=== PATIENT | male | born 1955 | race Caucasian/White ===

== ENCOUNTER 2018-07-31 05:57 | Observation (INO) ==
[2018-07-31] MEDS ORDERED: 0.9 % Sodium Chloride 1,000 ML IVC ONE (06:37)
[2018-07-31 06:53] LABS: Basophils % 0.2 %; Eosinophils # 0.1 K/mcL (0.0-0.6); Eosinophils % 0.6 %; Hematocrit 46.7 % (37.5-50.1); Hemoglobin 15.9 g/dL (12.9-16.9); Immature Granulocytes % 0.4 % (0-4); Lymphocytes # 0.6 K/mcL (0.6-4.6); Lymphocytes % 6.2 %; Mean Corpuscular Hemoglobin 29.2 pg (28.0-33.3); Mean Corpuscular Volume 85.7 fL (83.0-100.0); Mean Platelet Volume 9.9 fL (9.4-12.4); Monocytes # 0.7 K/mcL (0.0-1.3); Monocytes % 6.9 %; Neutrophils # 8.6 K/mcL (1.6-8.9); Platelet Count 223 K/mcL (140-400); Red Blood Count 5.45 M/mcL (4.19-5.50); Segmented Neutrophils % 85.7 %
[2018-07-31 07:19] LABS: Alanine Aminotransferase 277 Units/L (7-52); Albumin 4.3 g/dL (3.5-5.7); Albumin/Globulin Ratio 1.6 (1.1-2.2); Alkaline Phosphatase 293 Units/L (34-104); Aspartate Amino Transferase 327 Units/L (13-39); BUN/Creatinine Ratio 17 (6-26); Bilirubin,Total 1.6 mg/dL (0.3-1.0); Blood Urea Nitrogen 26 mg/dL (8-23); Calcium 9.9 mg/dL (8.6-10.3); Carbon Dioxide 22 mEq/L (23-29); Chloride 103 mEq/L (98-107); Creatine Kinase 25 Units/L (30-223); Globulin 2.7 g/dL (2.4-3.5); Glucose 435 mg/dL (70-105); Lipase 1285 Units/L (11-82); Osmolality,Calculated 301 (280-300); Potassium 4.4 mEq/L (3.5-5.1); Sodium 134 mEq/L (136-145); Troponin I < 0.03 ng/mL (< 0.04); eGFR For Non-African Americans 45 (> 60)
--- NOTE | 2018-07-31 08:35 | Emergency Department Note ---
Disposition Clinical Impression: Generalized weakness, Elevated LFTs Pancreatitis Qualifiers: Chronicity: acute Pancreatitis type: unspecified pancreatitis type Acute pancreatitis complication: unspecified Qualified Code(s): K85.90 - Acute pancreatitis without necrosis or infection, unspecified Disposition: Admitted As Inpatient Condition: Good [facility]: [facility]Primary Care Provider[facility] - Time of Disposition: 09:28 Weakness HPI - General Chief complaint: ED Weakness Stated complaint: weakness both legs Time Seen by Provider: 07/31/18 06:06 Source: patient Mode of arrival: private vehicle Limitations: no limitations Nursing Notes Reviewed: Yes Vital Signs Reviewed: Yes - History of Present Illness HPI Narrative: Raffy is a pleasant 62-year-old male with a past medical history of CVA, "mini stroke" and diabetes. He presents the emergency room with a chief complaint of bilateral weakness in his medial lower extremities starting around 4:30 this morning. Patient reports that he woke up to go to the bathroom while he was going to the bathroom he "crumpled to the ground". Patient denies falls or trauma or hits to the head during this episode. He states that he felt weak and with the help with his was able to walk to the bathroom. He states he has a previous similar episode where he was diagnosed with pancreatitis. Patient denies difficulty walking, abdominal pain, chest pain, shortness of breath, altered mental status. at bedside notes that the patient is at his normal baseline mental status. 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 Denies: nausea/vomiting, myalgias, rash, shortness of breath - Related Data Home Medications Medication Instructions Recorded Confirmed Gabapentin [Neurontin] 300 mg PO BID 03/15/16 03/15/16 Losartan Potassium [Cozaar] 100 mg PO DAILY 03/15/16 03/15/16 Omeprazole [PriLOSEC] 20 mg PO BIDAC 03/15/16 03/15/16 Zolpidem [Ambien] 10 mg PO HS 03/15/16 03/15/16 glipiZIDE [Glipizide] 20 mg PO BID 03/15/16 03/15/16 Previous Rx's Medication Instructions Recorded 0.9 % Sodium Chloride 50 ml IVC .Q20H #0 ivbag 03/15/16 Aspirin 81 mg PO DAILY tab.chew 03/15/16 Atorvastatin [Lipitor] 80 mg PO HS tablet 03/15/16 Metoprolol [Lopressor] 25 mg PO BID tablet 03/15/16 Morphine [Morphine Sulfate] 2 mg IV Q2H PRN #0 syringe 03/15/16 Ondansetron [Zofran] 4 mg IV Q6HR PRN #0 vial 03/15/16 SitaGLIPtin [Januvia] 100 mg PO DAILY tablet 03/15/16 Allergies Allergy/AdvReac Type Severity Reaction Status Date / Time atenolol Allergy See Verified 07/31/18 07:11 Comments hydrochlorothiazide Allergy Dizziness Verified 07/31/18 07:11 hydroxyzine Allergy Dizziness Verified 07/31/18 07:11 lisinopril Allergy Dizziness Verified 07/31/18 07:11 Terazosin Allergy Dizziness Verified 07/31/18 07:11 All systems ED: reviewed and negative except as stated. Review of Systems: As Per HPI Past Medical History - Past Medical History Medical history: Reports: CVA, diabetes, hyperlipidemia, hypertension, renal disease Surgical history: Reports: orthopedic, other Psychiatric history: Reports: no psych history - Social History Smoking Status: Never smoker Smokeless Tobacco Status: No Alcohol use: Reports: none Drug use: Reports: none Physical Exam No breaks the skin on lower legs. 2+ dorsalis pedis and posterior tibial. Distal extremities are pink warm and dry motor and sensation intact lower extremities. - General Limitations: no limitations General appearance: alert - Head Head exam: atraumatic - Eye Eye exam: Present: normal appearance - ENT ENT exam: normal exam - Neck Neck exam: Present: normal inspection - Chest Chest inspection: Present: normal inspection - Respiratory Respiratory exam: Present: normal lung sounds bilaterally - Cardiovascular Cardiovascular exam: Present: regular rate, normal rhythm - Abdominal Exam Abdominal exam: Present: soft, Non-Tender - Expanded Upper Extremity Exam Shoulder exam: Present: normal inspection Arm exam: Present: normal inspection Elbow exam: Present: normal inspection Forearm/Wrist exam: Present: normal inspection Hand exam: Present: normal inspection - Expanded Lower Extremity Exam Hip/Pelvis exam: Present: normal inspection, full ROM Upper leg exam: Present: normal inspection, full ROM Knee exam: Present: normal inspection, full ROM Lower leg exam: Present: normal inspection, full ROM Ankle exam: Present: normal inspection, full ROM Foot/toe exam: Present: normal inspection, full ROM Course Course Narrative: Patient was given a liter of fluids in the emergency room and a repeat BMP was drawn. She was admitted to the hospitalist/any for by Dr. Ayon. Admitting on July 31 9:27 AM Vital Signs Temperature 97.6 F 07/31/18 06:01 Pulse Rate 91 07/31/18 06:01 Respiratory Rate 18 07/31/18 06:01 Blood Pressure 131/75 07/31/18 06:01 O2 Sat by Pulse Oximetry 97 07/31/18 06:01 Temperature 97.6 F 07/31/18 06:01 Pulse Rate 91 07/31/18 06:01 Respiratory Rate 18 07/31/18 06:01 Blood Pressure 131/75 07/31/18 06:01 O2 Sat by Pulse Oximetry 97 07/31/18 06:01 Oxygen Delivery Oxygen Delivery Room Air Weakness - Lab Data Result diagrams: 07/31/18 06:10 07/31/18 06:10 Lab Results 07/31/18 07/31/18 Range/Units 06:10 06:10 WBC 10.0 (4.3-11.1) K/mcL RBC 5.45 (4.19-5.50) M/mcL Hgb 15.9 (12.9-16.9) g/dL Hct 46.7 (37.5-50.1) % MCV 85.7 (83.0-100.0) fL MCH 29.2 (28.0-33.3) pg MCHC 34.0 (31.6-35.5) g/dL RDW 13.0 (11.5-14.5) % Plt Count 223 (140-400) K/mcL MPV 9.9 (9.4-12.4) fL Immature Gran % 0.4 (0-4) % Seg Neutrophils % 85.7 % Lymphocytes % 6.2 % Monocytes % 6.9 % Eosinophils % 0.6 % Basophils % 0.2 % Neutrophils # 8.6 (1.6-8.9) K/mcL Lymphocytes # 0.6 (0.6-4.6) K/mcL Monocytes # 0.7 (0.0-1.3) K/mcL Eosinophils # 0.1 (0.0-0.6) K/mcL Basophils # 0.0 (0.0-0.2) K/mcL Sodium 134 L (136-145) mEq/L Potassium 4.4 (3.5-5.1) mEq/L Chloride 103 (98-107) mEq/L Carbon Dioxide 22 L (23-29) mEq/L BUN 26 H (8-23) mg/dL Creatinine 1.55 H (0.70-1.30) mg/dL Est GFR ( Amer) 55 L (> 60) Est GFR (Non-Af Amer) 45 L (> 60) BUN/Creatinine Ratio 17 (6-26) Glucose 435 H (70-105) mg/dL Calculated Osmolality 301 H (280-300) Calcium 9.9 (8.6-10.3) mg/dL Total Bilirubin 1.6 H (0.3-1.0) mg/dL AST 327 H (13-39) Units/L ALT 277 H (7-52) Units/L Alkaline Phosphatase 293 H (34-104) Units/L Creatine Kinase 25 L (30-223) Units/L Troponin I < 0.03 (< 0.04) ng/mL Serum Total Protein 7.0 (6.4-8.9) g/dL Albumin 4.3 (3.5-5.7) g/dL Globulin 2.7 (2.4-3.5) g/dL Albumin/Globulin Ratio 1.6 (1.1-2.2) Lipase 1285 H (11-82) Units/L - EKG Data EKG results narrative: old ekg: Dated February 2016 shows sinus rhythm acute MO July 31 603 sinus tachycardia supraventricular bigeminy shows old anteroseptal infarct abnormal T waves July 31 sinus rhythm atrial premature complexes nonspecific intraventricular conduction delay continues to show old anteroseptal infarct nonspecific T waves. EKG's interpreted by Dr. Rouse
[2018-07-31 09:22] LABS: Calcium 9.1 mg/dL (8.6-10.3); Potassium 4.3 mEq/L (3.5-5.1)
[2018-07-31] MEDS ORDERED: Acetaminophen 325 MG TABLET PO PRN (11:00)
[2018-07-31] MEDS ORDERED: OXYCODONE Oral CONC 10 MG/0.5 ML ORAL.SYG SL PRN ×2 (11:00)
[2018-07-31] MEDS ORDERED: *HR* Promethazine 25 MG/ML VIAL IVP PRN (11:00)
[2018-07-31] MEDS ORDERED: Naloxone 0.4 MG/ML INJ IVP PRN (11:00)
--- NOTE | 2018-07-31 11:21 | Internal Med History&Physical ---
Date of Encounter: 07/31/18 Time of Encounter: 11:00 Internal Medicine - H&P: HPI Chief complaint: Bilateral lower extremity weakness Admitted From: Emergency Dept Plans for Post Hospital Care: Home History of present illness: Mr. Betts is a 62 year old male patient with a history of hypertension, hyperlipidemia who presented to the ER with complaints of bilateral lower extremity weakness this morning. He had gotten up to go to the bathroom and he felt very weak in his legs. He sat down but did not fall. He did not have focal weakness but was more generalized weakness. Since then he has been feeling better. He has walked in the hospital without any difficulties. He denies any weakness anywhere else. Denies any abdominal pain, nausea or vomiting. In the ER, his had reported that he had similar presentation when he was last diagnosed with pancreatitis. As such workup was done for pancreatitis and patient was found to have elevated lipase level. ER has therefore requested the patient be hospitalized. He apparently had an episode of pancreatitis about 6 months back at a different hospital. No clear cause was identified then. Past Med Surg Social Fam HX - Past Medical History Attestation: Yes The following information was validated with the patient. Source: patient Medical history: CVA, diabetes, hyperlipidemia, hypertension, renal disease Psychiatric history: no psych history - Past Surgical History Surgical History: appendectomy - Social History Smoking Status: Never smoker Smokeless Tobacco Status: No Alcohol use: none Drug use: none - Family History Father Adopted: No Living Status: Hx Family Cardiac Disorders: Yes Hx Family Respiratory Disorders: No Hx Family Cancer: No Hx Family GI Disorders: No Hx Family Endocrine Disorder: No Hx Family Neuromuscular Disorders: No Hx Family Neurologic Disorders: No Hx Family HEENT Disorders: No Hx Family Autoimmune Disorders: No Internal Medicine - H&P: Meds 0.9 % Sodium Chloride 50 ml IVC .Q20H #0 ivbag 03/15/16 [Rx] Aspirin 81 mg PO DAILY tab.chew 03/15/16 [Rx] Atorvastatin [Lipitor] 80 mg PO HS tablet 03/15/16 [Rx] Gabapentin [Neurontin] 300 mg PO BID 03/15/16 [History] Losartan Potassium [Cozaar] 100 mg PO DAILY 03/15/16 [History] Metoprolol [Lopressor] 25 mg PO BID tablet 03/15/16 [Rx] Morphine [Morphine Sulfate] 2 mg IV Q2H PRN #0 syringe 03/15/16 [Rx] Omeprazole [PriLOSEC] 20 mg PO BIDAC 03/15/16 [History] Ondansetron [Zofran] 4 mg IV Q6HR PRN #0 vial 03/15/16 [Rx] SitaGLIPtin [Januvia] 100 mg PO DAILY tablet 03/15/16 [Rx] Zolpidem [Ambien] 10 mg PO HS 03/15/16 [History] glipiZIDE [Glipizide] 20 mg PO BID 03/15/16 [History] 3 Allergy/AdvReac Type Severity Reaction Status Date / Time atenolol Allergy See Verified 07/31/18 07:11 Comments hydrochlorothiazide Allergy Dizziness Verified 07/31/18 07:11 hydroxyzine Allergy Dizziness Verified 07/31/18 07:11 lisinopril Allergy Dizziness Verified 07/31/18 07:11 Terazosin Allergy Dizziness Verified 07/31/18 07:11 All Systems PM: A 10-system review of systems was performed and is negative for pertinent findings except as documented above in the HPI. - Constitutional Constitutional: weakness, no chills, no fever(s), no night sweats - EENT Eyes: no change in vision, no discharge, no pain, no photophobia Ears: no ear discharge, no ear pain, no tinnitus Nose, mouth and throat: no dysphagia, no nasal discharge, no neck pain, no sore throat - Cardiovascular Cardiovascular ROS IM: no chest pain, no diaphoresis, no dyspnea, no lightheadedness, no palpitations, no syncope - Respiratory Respiratory: no cough, no dyspnea, no wheezing, no excessive phlegm production - Gastrointestinal Gastrointestinal: no abdominal pain, no diarrhea, no hematemesis, no hematochezia, no melena, no nausea, no vomiting - Musculoskeletal Musculoskeletal ROS IM: no numbness, no tingling - Integumentary Integumentary IM: no rash, no unusual bruising - Neurological Neurological ROS: no confusion, no convulsions, no focal weakness, no numbness, no tingling, no tremor(s) - Hematologic/Lymphatic Hematologic/Lymphatic: no easy bruising - Constitutional Vitals: Temp Pulse Resp BP Pulse Ox 98.3 F 80 18 154/93 96 07/31/18 10:25 07/31/18 10:25 07/31/18 10:25 07/31/18 10:25 07/31/18 10:25 General appearance: Present: cooperative, A&O X 3, pleasant, no acute distress, answers questions appropriately Exam: . - Eye Eye exam: Present: PERRL, conjuntiva pink, sclera anicteric Pupils: Present: PERRL - Neck Neck exam general surgery: Present: supple, trachea midline. Absent: lymphadenopathy - Respiratory Respiratory exam: Present: CTAB. Absent: accessory muscle use, rales, rhonchi, wheezes - Cardiovascular Cardiovascular exam: Present: RRR, +S1, +S2. Absent: diastolic murmur, gallop, rubs, systolic murmur - GI/Abdominal GI/Abdominal exam: Present: normal bowel sounds, soft, no peritoneal signs. Absent: distended, tenderness - Extremities Exam Extremities exam: Present: warm, radial pulses palpable and symmetrical. Absent : calf tenderness, cyanotic, pedal edema - Neurological Exam Neurological exam: Present: CN II-XII intact, oriented X3, no focal deficits, strengths equal and symetr throughout. Absent: facial droop, speech deficit Additional comments: Normal strength in all 4 extremities. - Skin Skin exam: Present: dry, intact Internal Med - H&P Results - Labs CBC & Chem 7: 07/31/18 06:10 07/31/18 08:52 - Impressions Impressions Head CT 07/31/18 06:34 IMPRESSION: 1. No acute intracranial abnormality. 2. [id number] global parenchymal volume loss with chronic microvascular ischemic change. 3. Atherosclerosis. D/ / Julio Frazier MD / Julio Frazier MD Interpreting Provider: Julio Frazier MD Gallbladder Ultrasound 07/31/18 07:44 IMPRESSION: Negative right upper quadrant ultrasound. D/ / Elton Jaramillo MD / Elton aJramillo MD Interpreting Provider: Elton Jaramillo MD - Assessment and plan (1) Pancreatitis Current Visit: Yes Status: Acute Assessment and plan: Patient with acute pancreatitis. Lipase level at 1285. AST, ALT and alkaline phosphatase are also elevated. Suspect biliary pancreatitis. Gallbladder ultrasound does not show any gallstones. Could be microlithiasis related. Consider surgery consult tomorrow patient would need cholecystectomy as this is his second episode of acute pancreatitis within the past year. Moderate risk for complications. Keep nothing by mouth. IV fluids. Get CT scan of the abdomen. Qualifiers: Chronicity: acute Pancreatitis type: unspecified pancreatitis type Acute pancreatitis complication: no infection or necrosis Qualified Code(s): K85.90 - Acute pancreatitis without necrosis or infection, unspecified (2) Generalized weakness Current Visit: Yes Status: Acute Assessment and plan: Patient reported generalized weakness earlier this morning. However it has not resolved completely. Patient has no acute findings on my examination. CT of the head was negative. His symptoms could be related to pancreatitis. Now, no further workup indicated. However if symptoms recur, consider TIA/stroke workup. (3) Chronic kidney disease, stage 3 Current Visit: Yes Status: Chronic Assessment and plan: Creatinine 1.56. Patient does appear to have chronic kidney disease stage III. Related to his diabetes. Will monitor closely. Avoid nephrotoxic agents. (4) Diabetes Current Visit: Yes Status: Chronic Assessment and plan: Monitor blood sugars. Sliding scale insulin. Patient reportedly had infection in the past when he received insulin injections. No true allergy. We will monitor him closely in the hospital while he is receiving insulin. 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
[2018-07-31] MEDS: Ringers Solution, Lactated 1,000 ML IVC SCH ×2 (11:28→22:11)
[2018-07-31] MEDS ORDERED: D5% in Water 1,000 ML IVC PRN (11:33)
[2018-07-31] MEDS ORDERED: *HR* Dextrose 50 % in Water (Syg) 50 ML SYRINGE IVP PRN (11:33)
[2018-07-31] MEDS ORDERED: Dextrose Gel 15 GM/37.5 ML TUBE PO PRN ×2 (11:33)
[2018-07-31] MEDS ORDERED: Insulin LISPRO 300 UNITS/3 ML VIAL SQ SCH ×3 (13:30→21:00)
[2018-07-31] MEDS ORDERED: Insulin LISPRO 300 UNITS/3 ML VIAL SQ ONE (13:48)
[2018-07-31] MEDS: Insulin LISPRO 300 UNITS/3 ML VIAL SQ SCH ×2 (14:11→18:38)
--- NOTE | 2018-07-31 17:36 | Electrocardiograph Report ---
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
[2018-07-31] MEDS: *HR* Heparin 5,000 UNIT/ML VIAL SQ SCH (18:41)
[2018-08-01] MEDS: Insulin LISPRO 300 UNITS/3 ML VIAL SQ SCH ×4 (00:28→18:24)
[2018-08-01] MEDS: *HR* Heparin 5,000 UNIT/ML VIAL SQ SCH ×2 (05:34→18:26)
[2018-08-01] MEDS: Ringers Solution, Lactated 1,000 ML IVC SCH ×2 (06:03→18:19)
--- NOTE | 2018-08-01 08:21 | Internal Med Progress Note ---
Hospitalist Progress Note - Encounter Date of Encounter: 08/01/18 Time of Encounter: 08:20 - Exam Vitals: Temp Pulse Resp BP Pulse Ox 98.3 F 88 18 161/98 95 08/01/18 06:59 08/01/18 06:59 08/01/18 06:59 08/01/18 06:59 08/01/18 06:59 Exam: .Gen - Awake, alert, oriented x 3, no acute distress HEENT - NCAT, PERRLA, EOMI, hearing grossly intact, oropharynx benign CV - RRR, normal S1 and S2, no M/R/G, no BLE edema Resp - Normal WOB, CTAB, no W/R/R GI - Soft, NT/ND, no masses, normal bowel sounds, Skin - Warm, dry, no rashes/lesions/ulcers Psych - Normal mood and affect, no depression or anxiety - Assessment and Plan (1) Pancreatitis Current Visit: Yes Status: Acute Assessment and Plan: Patient with acute pancreatitis. Lipase level at 1285. AST, ALT and alkaline phosphatase are also elevated. Ultrasound of gallbladder unremarkable. CT shows evidence of pancreatitis. Continue IV fluids, pain control, advance diet as tolerated Due to transaminitis and unintentional weight loss, will obtain MRCP abdomen. GI on board (2) Diabetes Current Visit: Yes Status: Chronic Assessment and Plan: Monitor blood sugars. Sliding scale insulin. (3) Generalized weakness Current Visit: Yes Status: Acute Assessment and Plan: Patient reported generalized weakness earlier this morning. CT head negative Will give Iv fluids, Obtain PT consult (4) Chronic kidney disease, stage 3 Current Visit: Yes Status: Chronic Assessment and Plan: Creatinine 1.56. Patient does appear to have chronic kidney disease stage III. Related to his diabetes. Will monitor closely. Avoid nephrotoxic agents. (5) Protein calorie malnutrition Current Visit: Yes Status: Acute Assessment and Plan: Moderate non severe protein calorie malnutrition. Follow up dietary recs DVT Prophylaxis: heparin sc - Time Spent with Patient Total time spent is greater than 50% in coordination of care (as documented) at patient's floor/unit and/or counseling patient: Internal Medicine: Result - Labs CBC & Chem 7: 08/01/18 08:09 08/01/18 08:09 - Impressions Impressions Abdomen CT 07/31/18 11:18 IMPRESSION: 1. Infiltration of the fat adjacent to the pancreas suggesting acute pancreatitis. No abnormal fluid collections. 2. Normal appearing gallbladder 3. Colonic diverticulosis without evidence for diverticulitis 4. The visualized portion of the appendix appears normal. 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
[2018-08-01 08:39] LABS: Basophils % 0.1 %; Eosinophils # 0.1 K/mcL (0.0-0.6); Eosinophils % 1.5 %; Immature Granulocytes % 0.3 % (0-4); Lymphocytes # 0.9 K/mcL (0.6-4.6); Lymphocytes % 12.5 %; Mean Corpuscular HGB Conc 33.8 g/dL (31.6-35.5); Mean Corpuscular Hemoglobin 29.5 pg (28.0-33.3); Mean Corpuscular Volume 87.1 fL (83.0-100.0); Mean Platelet Volume 9.3 fL (9.4-12.4); Monocytes # 0.7 K/mcL (0.0-1.3); Monocytes % 9.7 %; Neutrophils # 5.2 K/mcL (1.6-8.9); Platelet Count 166 K/mcL (140-400); Red Blood Count 4.48 M/mcL (4.19-5.50); Red Cell Distribution Width 13.2 % (11.5-14.5); Segmented Neutrophils % 75.9 %
[2018-08-01 08:42] LABS: Hemoglobin 13.2 g/dL (12.9-16.9)
--- NOTE | 2018-08-01 08:54 | Electrocardiograph Report ---
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
[2018-08-01 08:57] LABS: BUN/Creatinine Ratio 12 (6-26); Blood Urea Nitrogen 14 mg/dL (8-23); Calcium 9.1 mg/dL (8.6-10.3); Carbon Dioxide 20 mEq/L (23-29); Chloride 108 mEq/L (98-107); Glucose 131 mg/dL (70-105); Osmolality,Calculated 290 (280-300); Potassium 3.7 mEq/L (3.5-5.1); Sodium 139 mEq/L (136-145); eGFR For Non-African Americans > 60 (> 60)
[2018-08-01 09:08] LABS: Alanine Aminotransferase 192 Units/L (7-52); Albumin 3.4 g/dL (3.5-5.7); Albumin/Globulin Ratio 1.5 (1.1-2.2); Alkaline Phosphatase 220 Units/L (34-104); Aspartate Amino Transferase 116 Units/L (13-39); Bilirubin,Total 1.9 mg/dL (0.3-1.0); Globulin 2.2 g/dL (2.4-3.5); Total Protein 5.6 g/dL (6.4-8.9)
[2018-08-01] MEDS ORDERED: Gadolinium Contrast Agent (WT Based) IV PRN (10:38)
--- NOTE | 2018-08-01 10:54 | Gastroenterology Consult Note ---
Date of Encounter: 08/01/18 Time of Encounter: 10:10 - Assessment and plan (1) Unintentional weight loss Current Visit: Yes Status: Acute Assessment and plan: Patient reports weight loss from January 2018. He states at that time he was 218 lbs and on admission was 170 lbs. Check MRI/MRCP to r/o pancreatic mass. (2) Pancreatitis Current Visit: Yes Status: Acute Assessment and plan: Lipase [address] A/P suggestive of acute pancreatitis. Continue IV fluids. Use antiemetics and pain control if needed. Plan for MRI abdomen with MRCP to rule out any pancreatic lesions or small stones in the CBD. Check MITCHEL, IgG4, ionized calcium, and triglycerides. Qualifiers: Chronicity: acute Pancreatitis type: unspecified pancreatitis type Acute pancreatitis complication: no infection or necrosis Qualified Code(s): K85.90 - Acute pancreatitis without necrosis or infection, unspecified (3) Elevated LFTs Current Visit: Yes Status: Acute Assessment and plan: TB 1.9, AST 116, ALT 192. Check MRI with MRCP. - Time Spent With Patient Total time spent is greater than 50% in coordination of care (as documented) at patient's floor/unit and/or counseling patient: GI History of Present Illness - Data of Consult Patient: new to practice Consult date: 08/01/18 Requesting Physician: Wai Ayon MD - Consult Narrative Reason for consult: Pancreatitis History of present illness: Mr. Betts is a 62 year old male with PMHx of CVA, DM, HLD, HTN, CKD who presented to the ED with complaints of bilateral lower extremity weakness. He denied any abdominal pain, nausea, or vomiting. In the ER, his had reported that he had similar presentation when he was last diagnosed with pancreatitis. He apparently had an episode of pancreatitis about 6 months back at a different hospital. Lipase on admission was 1285. CT A/P suggestive of acute pancreatitis. RUQ US was unremarkable. Patient reports unintentional weight loss since January 2018. He denies ETOH use. Procedures: None NSAIDs: ASA Anticoagulation: Plavix Past Med Surg Social Fam HX - Past Medical History Medical history: CVA, diabetes, hyperlipidemia, hypertension, renal disease Psychiatric history: no psych history - Past Surgical History Surgical History: appendectomy - Social History Smoking Status: Never smoker Smokeless Tobacco Status: No Alcohol use: none Drug use: none - Family History Father Adopted: No Living Status: Hx Family Cardiac Disorders: Yes Hx Family Respiratory Disorders: No Hx Family Cancer: No Hx Family GI Disorders: No Hx Family Endocrine Disorder: No Hx Family Neuromuscular Disorders: No Hx Family Neurologic Disorders: No Hx Family HEENT Disorders: No Hx Family Autoimmune Disorders: No - Gastrointestinal Gastrointestinal: Present: as per HPI - Constitutional Constitutional: as per HPI - EENT Eyes: as per HPI Ears: Present: as per HPI Nose, mouth and throat: Present: as per HPI - Cardiovascular Cardiovascular ROS: Present: as per HPI - Respiratory Respiratory IM: Present: as per HPI - Genitourinary Genitourinary: Absent: change in color, Urinary frequency - Neurological ROS Neurological GI: Present: as per HPI - Hematologic/Lymphatic Hematologic/Lymphatic pediatric: Present: as per HPI - Musculoskeletal Musculoskeletal ROS GI: Present: as per HPI - Integumentary Integumentary GI: Present: as per HPI - Psychiatric ROS Psychiatric GI: Present: as per HPI - Endocrine Endocrine IM: Present: as per HPI - Constitutional Vitals: Temp Pulse Resp BP Pulse Ox 98.3 F 88 18 161/98 95 08/01/18 06:59 08/01/18 06:59 08/01/18 06:59 08/01/18 06:59 08/01/18 06:59 General appearance: Present: cooperative, A&O X 3, no acute distress, answers questions appropriately - Head Head exam: Present: atraumatic, normocephalic - Eye Eye exam: Present: normal appearance, sclera anicteric - ENT ENT exam: Present: mucous membranes moist - Neck Neck exam general surgery: Present: normal inspection, trachea midline - Respiratory Respiratory exam: Present: CTAB. Absent: rales, rhonchi - Cardiovascular Cardiovascular exam: Present: RRR, +S1, +S2 - GI/Abdominal GI/Abdominal exam: Present: soft, no peritoneal signs. Absent: distended, firm , guarding, tenderness - Rectal Rectal exam: Present: deferred - Extremities Exam Extremities exam: Present: warm - Neurological Exam Neurological exam: Present: no focal deficits - Psychiatric Psychiatric exam: Present: normal affect, normal mood - Skin Skin exam: Present: dry, intact, normal color, warm Results - Labs CBC & Chem 7: 08/01/18 08:09 08/01/18 08:09 Labs: Last Result Calcium 9.1 mg/dL (8.6-10.3) 08/01/18 08:09 Troponin I < 0.03 ng/mL (< 0.04) 07/31/18 06:10 Triglycerides 124 mg/dL (< 150) 08/01/18 09:58 Entire Visit Hgb 13.2 g/dL (12.9-16.9) D 08/01/18 08:09 Hct 39.0 % (37.5-50.1) 08/01/18 08:09 Total Bilirubin 1.9 mg/dL (0.3-1.0) H 08/01/18 08:09 AST 116 Units/L (13-39) H 08/01/18 08:09 ALT 192 Units/L (7-52) H 08/01/18 08:09 Lipase 1285 Units/L (11-82) H 07/31/18 06:10 - Impressions Impressions Abdomen CT 07/31/18 11:18 IMPRESSION: 1. Infiltration of the fat adjacent to the pancreas suggesting acute pancreatitis. No abnormal fluid collections. 2. Normal appearing gallbladder 3. Colonic diverticulosis without evidence for diverticulitis 4. The visualized portion of the appendix appears normal. D/ / Yo Beatty MD / Yo Beatty MD Interpreting Provider: Yo Beatty MD Consult Discharge Plan - Plan [facility]errals: [facility] [Primary Care Provider] -
[2018-08-01 11:21] LABS: VBG Ionized Calcium 1.17 mmol/L (1.15-1.35)
[2018-08-01] MEDS ORDERED: Insulin LISPRO 300 UNITS/3 ML VIAL SQ SCH (21:00)
[2018-08-02 01:56] LABS: Basophils % 0.3 %; Eosinophils # 0.2 K/mcL (0.0-0.6); Eosinophils % 3.2 %; Hematocrit 39.9 % (37.5-50.1); Hemoglobin 13.4 g/dL (12.9-16.9); Immature Granulocytes % 0.3 % (0-4); Lymphocytes # 1.1 K/mcL (0.6-4.6); Lymphocytes % 16.8 %; Mean Corpuscular HGB Conc 33.6 g/dL (31.6-35.5); Mean Corpuscular Hemoglobin 29.1 pg (28.0-33.3); Mean Corpuscular Volume 86.6 fL (83.0-100.0); Mean Platelet Volume 9.9 fL (9.4-12.4); Monocytes # 0.7 K/mcL (0.0-1.3); Monocytes % 10.9 %; Neutrophils # 4.5 K/mcL (1.6-8.9); Platelet Count 175 K/mcL (140-400); Red Blood Count 4.61 M/mcL (4.19-5.50); Segmented Neutrophils % 68.5 %
[2018-08-02 02:15] LABS: BUN/Creatinine Ratio 12 (6-26); Blood Urea Nitrogen 12 mg/dL (8-23); Calcium 8.8 mg/dL (8.6-10.3); Carbon Dioxide 20 mEq/L (23-29); Chloride 106 mEq/L (98-107); Glucose 112 mg/dL (70-105); Magnesium 1.8 mg/dL (1.6-2.6); Osmolality,Calculated 285 (280-300); Phosphorous 2.5 mg/dL (2.7-4.5); Potassium 3.5 mEq/L (3.5-5.1); Sodium 137 mEq/L (136-145); eGFR For Non-African Americans > 60 (> 60)
[2018-08-02] MEDS: Ringers Solution, Lactated 1,000 ML IVC SCH ×3 (02:50→12:36)
[2018-08-02] MEDS: *HR* Heparin 5,000 UNIT/ML VIAL SQ SCH ×2 (06:42→17:02)
[2018-08-02] MEDS: Insulin LISPRO 300 UNITS/3 ML VIAL SQ SCH ×3 (08:52→17:01)
[2018-08-02 13:03] LABS: Amylase 31 Units/L (29-103); Lipase 61 Units/L (11-82)
[2018-08-02 15:09] LABS: Immunoglobulin G Subclass 4 11 mg/dL (1-123)
[2018-08-02 15:20] VITALS: BP 167/83
--- NOTE | 2018-08-02 15:32 | Discharge Summary ---
- NOTES TO OUTPATIENT PROVIDER Notes to Outpatient Provider: follow-up with plating tank operator at [place], may consider follow-up with neurologist. With his to sudden episode of generalized weakness which resolved completely. Orders not resulted at time of discharge: Pending orders 08/01/18 10:52 MITCHEL IgG BERNIE rflx IFA Routine Immunoglobulin G Subclass 4 Routine 08/03/18 04:00 Basic Metabolic Panel AM 0400 CBC [Complete Blood Count] [HEME] AM 0400 Magnesium AM 0400 Phosphorous AM 0400 08/04/18 04:00 Basic Metabolic Panel AM 0400 CBC [Complete Blood Count] [HEME] AM 0400 Magnesium AM 0400 Phosphorous AM 0400 08/05/18 04:00 Basic Metabolic Panel AM 0400 CBC [Complete Blood Count] [HEME] AM 0400 Magnesium AM 0400 Phosphorous AM 0400 08/06/18 04:00 Basic Metabolic Panel AM 0400 CBC [Complete Blood Count] [HEME] AM 0400 Magnesium AM 0400 Phosphorous AM 0400 08/07/18 04:00 Basic Metabolic Panel AM 0400 CBC [Complete Blood Count] [HEME] AM 0400 Magnesium AM 0400 Phosphorous AM 0400 Date of Encounter: 08/02/18 Time of Encounter: 13:15 - Discharge Diagnosis (1) Diabetes Priority: Secondary Status: Chronic Qualifiers: Diabetes mellitus type: type 2 Diabetes mellitus mcfp insulin use: without 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 operator use Diabetes mellitus complication status: with kidney complications Diabetes mellitus complication detail: with chronic kidney disease Chronic kidney disease stage: stage 3 (moderate) Qualified Code(s): E11.22 - Type 2 diabetes mellitus with diabetic chronic kidney disease; N18.3 - Chronic kidney disease, stage 3 (moderate) (2) Generalized weakness Priority: Primary Status: Acute (3) Pancreatitis Priority: Primary Status: Acute Qualifiers: Chronicity: acute Pancreatitis type: unspecified pancreatitis type Acute pancreatitis complication: no infection or necrosis Qualified Code(s): K85.90 - Acute pancreatitis without necrosis or infection, unspecified (4) Chronic kidney disease, stage 3 Priority: Secondary Status: Chronic (5) Protein calorie malnutrition Priority: Secondary Status: Acute Qualifiers: Protein-calorie malnutrition severity: mild Qualified Code(s): E44.1 - Mild protein-calorie malnutrition Hospital course: Mr. Betts is a 62 year old male patient with a history of hypertension, hyperlipidemia who presented to the ER with complaints of bilateral lower extremity weakness . He had gotten up to go to the bathroom and he felt very weak in his legs. He sat down but did not fall. He did not have focal weakness but was more generalized weakness. Since then he has been feeling better. He has walked in the hospital without any difficulties. He denies any weakness anywhere else. Denies any abdominal pain, nausea or vomiting. In the ER, his had reported that he had similar presentation when he was last diagnosed with pancreatitis. As such workup was done for pancreatitis and patient was found to have elevated lipase level. No clear cause was identified last admission. Patient was seen by plating tank operator .Lipase [address] A/ P suggestive of acute pancreatitis. We started the patient on IV fluids, antiemetic . MRI abdomen with MRCP to rule out any pancreatic lesions or small stones in the CBD done , results reviewed by plating tank operator, work up including MITCHEL, IgG4, ionized calcium, and triglycerideswere done , patient lipase was trending down, patient tolerated his meals, patient feel comfortable to go home. Complete neuro exam during hospitalization was normal, a she was discharged home in stable condition, based on patient request want to follow-up with plating tank operator at [place], may consider follow-up with neurologist. With his to sudden episode of generalized weakness which resolved completely - Time Spent with Patient Total time spent providing and/or coordinating discharge services: Less than 30 minutes - Discharge Medications Home Medications: Aspirin 81 mg PO DAILY tab.chew 03/15/16 [Rx] Gabapentin [Neurontin] 300 mg PO BID 03/15/16 [History] Omeprazole [PriLOSEC] 20 mg PO BID 03/15/16 [History] Zolpidem [Ambien] 10 mg PO HS 03/15/16 [History] glipiZIDE [Glipizide] 20 mg PO BID 03/15/16 [History] Atorvastatin [Lipitor] 40 mg PO HS 07/31/18 [History] Carvedilol [Coreg] 25 mg PO BID 07/31/18 [History] Clopidogrel [Plavix] 75 mg PO DAILY 07/31/18 [History] Insulin DETEMIR [Levemir Flextouch] 10 unit SQ HS 07/31/18 [History] Losartan Potassium [Cozaar] 50 mg PO DAILY 07/31/18 [History] Tamsulosin HCl [Flomax] 0.4 mg PO HS 07/31/18 [History] amLODIPine [Norvasc] 5 mg PO DAILY 07/31/18 [History] Allergies/Adverse Reactions: 3 Allergy/AdvReac Type Severity Reaction Status Date / Time atenolol Allergy See Verified 07/31/18 13:19 Comments hydrochlorothiazide AdvReac Dizziness Verified 07/31/18 13:19 hydroxyzine AdvReac Dizziness Verified 07/31/18 13:19 lisinopril AdvReac Dizziness Verified 07/31/18 13:19 Terazosin AdvReac Dizziness Verified 07/31/18 13:19 Date of admission: 07/31/18 09:34 [facility] care physician[facility] Consults: 07/31/18 10:22 Consult to Nutrition [CONS] Routine Comment: Consulting Provider: NUTRITION Reason for Dietary Consult: MST Score 08/01/18 08:15 Consult to Physical Therapy [CONS] Routine Comment: Evaluate, develop and implement POC Reason for Consult: weakness Does patient have active BEDREST order?: No Is patient medically & hemodynamically stable?: Yes Patient assessed for mobility or mobilized this visit?: No 08/01/18 08:25 Consult to Gastroenterology [CONS] Routine Consulting Provider: Gastroenterology Josefina Reason for Consult: pancreatitis with transaminitis Call Completed: No Discharging clinician: Hamilton Gasca Anticipated date of discharge: 08/04/18 - Constitutional Vitals: Temp Pulse Resp BP Pulse Ox 98.2 F 85 16 167/83 94 08/02/18 15:19 08/02/18 15:19 08/02/18 15:19 08/02/18 15:19 08/02/18 15:19 General appearance: Present: cooperative, A&O X 3, pleasant, no acute distress, answers questions appropriately Exam: as above - Head Head exam: Present: atraumatic, normocephalic - Neck Neck exam general surgery: Present: supple, trachea midline. Absent: lymphadenopathy - Respiratory Respiratory exam: Present: CTAB. Absent: accessory muscle use, rales, rhonchi, wheezes - Cardiovascular Cardiovascular exam: Present: RRR, +S1, +S2. Absent: diastolic murmur, gallop, rubs, systolic murmur - GI/Abdominal GI/Abdominal exam: Present: normal bowel sounds, soft, no peritoneal signs. Absent: distended, tenderness - Extremities Exam Extremities exam: Present: warm, radial pulses palpable and symmetrical. Absent : calf tenderness, cyanotic, pedal edema - Neurological Exam Neurological exam: Present: CN II-XII intact, oriented X3, no focal deficits. Absent: pronater drift, facial droop, speech deficit - Skin Skin exam: Present: dry, intact - Patient Status Disposition: Home, Self-Care Condition: Good - Discharge Instructions Instructions: Pancreatitis (DC) Follow Up With: [facility] [Outside] - 08/09/18 12:45 pm
[2018-08-02] MEDS ORDERED: Gabapentin 300 MG CAPSULE PO SCH (21:00)
[2018-08-03] MEDS ORDERED: amLODIPine 5 MG TABLET PO SCH (09:00)
[2018-08-03 11:34] LABS: ANA IgG by ELISA NONE DETECTED (None Detected)
== END 2018-08-02 18:12 | disposition home or self-care (01) ==
LOC: EMEROOARM 05:57 → 3ANU 05:57
PROVIDERS: ADMIT Internal Medicine; ATTEND Internal Medicine

== ENCOUNTER 2020-04-22 22:47 | Inpatient (IN) ==
[2020-04-22] MEDS ORDERED: 0.9 % Sodium Chloride 1,000 ML IVC ONE (23:01)
[2020-04-22 23:23] LABS: Bacteria,Urine Many per hpf (None-Few); Bilirubin,Urine Negative (Negative); Blood,Urine Small (Negative); Clarity,Urine Turbid (Clear); Color,Urine Yellow (Yellow); Glucose,Urine (UA) 200 mg/dL (Normal); Ketones,Urine Trace mg/dL (Negative); Leukocyte Esterase,Urine Large (Negative); Mucus,Urine Few per lpf (None-Few); Nitrite,Urine Positive (Negative); PH,Urine 5.5 pH Units (5.0-8.0); Protein,Urine 70 mg/dL (Neg-Trace); Specific Gravity,Urine 1.024 (1.010-1.025); Squamous Epithelial Cell,Urine Few per hpf (None-Few); Urobilinogen,Urine Normal (Normal); WBC,Urine TNTC per hpf (0-3)
[2020-04-22 23:40] LABS: Basophils % 0.3 %; Eosinophils % 0.2 %; Hematocrit 33.4 % (37.5-50.1); Hemoglobin 10.4 g/dL (12.9-16.9); Immature Granulocytes % 0.6 % (0-4); Lymphocytes # 1.2 K/mcL (0.6-4.6); Lymphocytes % 9.5 %; Mean Corpuscular HGB Conc 31.1 g/dL (31.6-35.5); Mean Corpuscular Hemoglobin 28.5 pg (28.0-33.3); Mean Corpuscular Volume 91.5 fL (83.0-100.0); Mean Platelet Volume 8.6 fL (9.4-12.4); Monocytes # 1.4 K/mcL (0.0-1.3); Monocytes % 11.1 %; Neutrophils # 9.9 K/mcL (1.6-8.9); Platelet Count 383 K/mcL (140-400); Red Blood Count 3.65 M/mcL (4.19-5.50); Red Cell Distribution Width 14.1 % (11.5-14.5); Segmented Neutrophils % 78.3 %; White Blood Count 12.6 K/mcL (4.3-11.1)
[2020-04-22 23:45] LABS: VBG HCO3 29 mEq/L (21-27); VBG PCO2 46 mmHg (41-51); VBG PH 7.41 pH Units (7.32-7.42); VBG PO2 49 mmHg (25-50)
[2020-04-22] MEDS ORDERED: cefTRIAXone 1,000 MG in Water for inj. (sterile) 10 ML IVP ONE (23:58)
[2020-04-23] LABS: Alanine Aminotransferase 7 Units/L (7-52); Albumin 2.9 g/dL (3.5-5.7); Alkaline Phosphatase 70 Units/L (34-104); Aspartate Amino Transferase 7 Units/L (13-39); BUN/Creatinine Ratio 18 (6-26); Bilirubin,Total 0.6 mg/dL (0.3-1.0); Blood Urea Nitrogen 24 mg/dL (8-23); Calcium 8.4 mg/dL (8.6-10.3); Carbon Dioxide 28 mEq/L (23-29); Chloride 105 mEq/L (98-107); Glucose 76 mg/dL (70-105); Osmolality,Calculated 291 (280-300); Potassium 3.6 mEq/L (3.5-5.1); Sodium 139 mEq/L (136-145); Total Protein 5.9 g/dL (6.4-8.9); eGFR For African Americans > 60 (> 60); eGFR For Non-African Americans 55 (> 60)
[2020-04-23 00:03] LABS: Troponin I < 0.03 ng/mL (< 0.04)
[2020-04-23 00:16] LABS: Thyroid Stimulating Hormone 1.729 mcIU/mL (0.340-5.600)
[2020-04-23] MEDS ORDERED: Acetaminophen 325 MG TABLET PO PRN (02:48)
[2020-04-23] MEDS ORDERED: Mag Hydrox/Al Hydrox/Simeth 30 ML UDC PO PRN (02:48)
[2020-04-23] MEDS ORDERED: *HR* Promethazine 25 MG/ML VIAL IVP PRN (02:48)
[2020-04-23] MEDS ORDERED: Naloxone 0.4 MG/ML INJ IVP PRN (02:48)
[2020-04-23] MEDS ORDERED: *HR* OxyCODONE Immed Rel 5 MG TABLET PO PRN (02:56)
[2020-04-23] MEDS ORDERED: 0.9 % Sodium Chloride 1,000 ML IVC SCH (03:00)
[2020-04-23] MEDS: Insulin LISPRO 300 UNITS/3 ML VIAL SQ SCH ×3 (09:50→17:51)
[2020-04-23] MEDS: *HR* Enoxaparin 40 MG/0.4 ML SYRINGE SQ SCH (09:55)
[2020-04-23] MEDS: cefTRIAXone 1,000 MG in Water for inj. (sterile) 10 ML IVP SCH (09:55)
[2020-04-23] MEDS: Aspirin 81 MG TAB.CHEW PO SCH (09:56)
[2020-04-23] MEDS: Magnesium Oxide 400 MG TABLET PO SCH ×2 (09:56→20:35)
[2020-04-23] MEDS: carvediloL 25 MG TABLET PO SCH (09:57)
[2020-04-23] MEDS ORDERED: NON-FORMULARY MEDICATION 1 EACH EACH (Acetaminophen [Acetaminophen Er] 650 MG) PO SCH (16:45)
[2020-04-23] MEDS: carvediloL 6.25 MG TABLET PO SCH (17:50)
[2020-04-23] MEDS: Insulin DETEMIR 100 UNIT/ML X5UNITS SQ SCH (20:35)
[2020-04-23] MEDS ORDERED: INSULIN DETEMIR 18 UNIT SQ SCH (21:00)
[2020-04-23] MEDS ORDERED: cefTRIAXone 1,000 MG in Water for inj. (sterile) 10 ML IVP SCH (21:00)
[2020-04-24 02:23] LABS: Basophils % 0.3 %; Eosinophils # 0.1 K/mcL (0.0-0.6); Eosinophils % 1.2 %; Hemoglobin 9.5 g/dL (12.9-16.9); Immature Granulocytes % 0.8 % (0-4); Lymphocytes # 1.1 K/mcL (0.6-4.6); Lymphocytes % 11.4 %; Mean Corpuscular HGB Conc 31.7 g/dL (31.6-35.5); Mean Corpuscular Hemoglobin 28.9 pg (28.0-33.3); Mean Corpuscular Volume 91.2 fL (83.0-100.0); Monocytes % 10.3 %; Neutrophils # 7.1 K/mcL (1.6-8.9); Platelet Count 312 K/mcL (140-400); Red Blood Count 3.29 M/mcL (4.19-5.50); White Blood Count 9.3 K/mcL (4.3-11.1)
[2020-04-24 02:36] LABS: BUN/Creatinine Ratio 21 (6-26); Blood Urea Nitrogen 23 mg/dL (8-23); Carbon Dioxide 25 mEq/L (23-29); Chloride 108 mEq/L (98-107); Glucose 69 mg/dL (70-105); Osmolality,Calculated 290 (280-300); Potassium 3.5 mEq/L (3.5-5.1); Sodium 139 mEq/L (136-145); eGFR For African Americans > 60 (> 60); eGFR For Non-African Americans > 60 (> 60)
[2020-04-24] MEDS: Insulin LISPRO 300 UNITS/3 ML VIAL SQ SCH ×3 (09:34→18:17)
[2020-04-24] MEDS: cefTRIAXone 1,000 MG in Water for inj. (sterile) 10 ML IVP SCH (09:34)
[2020-04-24] MEDS: Aspirin 81 MG TAB.CHEW PO SCH (09:35)
[2020-04-24] MEDS: Magnesium Oxide 400 MG TABLET PO SCH (09:35)
[2020-04-24] MEDS: *HR* Enoxaparin 40 MG/0.4 ML SYRINGE SQ SCH (09:35)
[2020-04-24] MEDS: carvediloL 6.25 MG TABLET PO SCH ×2 (09:37→18:17)
[2020-04-24] MEDS: polyethylene glycoL 3350 17 GM POWD.PACK PO SCH (09:40)
[2020-04-24] MEDS: Insulin DETEMIR 100 UNIT/ML X5UNITS SQ SCH (21:00)
[2020-04-25] MEDS ORDERED: Melatonin 3 MG TABLET PO ONE (00:34)
[2020-04-25 06:55] LABS: Basophils % 0.3 %; Eosinophils # 0.4 K/mcL (0.0-0.6); Eosinophils % 6.2 %; Hematocrit 30.5 % (37.5-50.1); Hemoglobin 9.6 g/dL (12.9-16.9); Immature Granulocytes % 0.5 % (0-4); Lymphocytes # 1.3 K/mcL (0.6-4.6); Lymphocytes % 19.9 %; Mean Corpuscular HGB Conc 31.5 g/dL (31.6-35.5); Mean Corpuscular Hemoglobin 28.9 pg (28.0-33.3); Mean Corpuscular Volume 91.9 fL (83.0-100.0); Mean Platelet Volume 9.3 fL (9.4-12.4); Monocytes # 0.8 K/mcL (0.0-1.3); Monocytes % 12.1 %; Neutrophils # 4.1 K/mcL (1.6-8.9); Platelet Count 345 K/mcL (140-400); Red Blood Count 3.32 M/mcL (4.19-5.50); Red Cell Distribution Width 13.7 % (11.5-14.5); White Blood Count 6.6 K/mcL (4.3-11.1)
[2020-04-25 07:19] LABS: BUN/Creatinine Ratio 28 (6-26); Blood Urea Nitrogen 30 mg/dL (8-23); Calcium 8.7 mg/dL (8.6-10.3); Carbon Dioxide 30 mEq/L (23-29); Chloride 107 mEq/L (98-107); Glucose 99 mg/dL (70-105); Osmolality,Calculated 298 (280-300); Potassium 4.6 mEq/L (3.5-5.1); Sodium 141 mEq/L (136-145); eGFR For African Americans > 60 (> 60); eGFR For Non-African Americans > 60 (> 60)
[2020-04-25] MEDS: *HR* Enoxaparin 40 MG/0.4 ML SYRINGE SQ SCH (09:13)
[2020-04-25] MEDS: polyethylene glycoL 3350 17 GM POWD.PACK PO SCH (09:14)
[2020-04-25] MEDS: carvediloL 6.25 MG TABLET PO SCH ×2 (09:14→16:38)
[2020-04-25] MEDS: Insulin LISPRO 300 UNITS/3 ML VIAL SQ SCH ×3 (09:14→16:36)
[2020-04-25] MEDS: Aspirin 81 MG TAB.CHEW PO SCH (09:14)
[2020-04-25] MEDS: cefTRIAXone 1,000 MG in Water for inj. (sterile) 10 ML IVP SCH (09:15)
[2020-04-25] MEDS: carvediloL 25 MG TABLET PO SCH (12:49)
[2020-04-25] MEDS: Insulin DETEMIR 100 UNIT/ML X5UNITS SQ SCH (21:03)
[2020-04-26 01:04] LABS: Hematocrit 32.3 % (37.5-50.1); Hemoglobin 10.1 g/dL (12.9-16.9); Mean Corpuscular HGB Conc 31.3 g/dL (31.6-35.5); Mean Corpuscular Volume 89.5 fL (83.0-100.0); Mean Platelet Volume 9.2 fL (9.4-12.4); Platelet Count 365 K/mcL (140-400); Red Blood Count 3.61 M/mcL (4.19-5.50); Red Cell Distribution Width 13.7 % (11.5-14.5); White Blood Count 5.7 K/mcL (4.3-11.1)
[2020-04-26 01:22] LABS: BUN/Creatinine Ratio 19 (6-26); Blood Urea Nitrogen 25 mg/dL (8-23); Calcium 8.6 mg/dL (8.6-10.3); Carbon Dioxide 26 mEq/L (23-29); Chloride 106 mEq/L (98-107); Glucose 169 mg/dL (70-105); Magnesium 1.9 mg/dL (1.6-2.6); Osmolality,Calculated 298 (280-300); Potassium 3.8 mEq/L (3.5-5.1); Sodium 140 mEq/L (136-145); eGFR For African Americans > 60 (> 60); eGFR For Non-African Americans 53 (> 60)
[2020-04-26] MEDS: Insulin LISPRO 300 UNITS/3 ML VIAL SQ SCH ×3 (08:04→17:38)
[2020-04-26] MEDS: carvediloL 6.25 MG TABLET PO SCH ×2 (08:15→17:37)
[2020-04-26] MEDS: Aspirin 81 MG TAB.CHEW PO SCH (08:15)
[2020-04-26] MEDS: *HR* Enoxaparin 40 MG/0.4 ML SYRINGE SQ SCH (08:15)
[2020-04-26] MEDS: polyethylene glycoL 3350 17 GM POWD.PACK PO SCH (08:16)
[2020-04-26] MEDS ORDERED: 0.9 % Sodium Chloride 250 ML IVC ONE (08:41)
[2020-04-26] MEDS ORDERED: 0.9 % Sodium Chloride 1,000 ML IVC SCH (08:45)
[2020-04-26] MEDS ORDERED: Insulin LISPRO 300 UNITS/3 ML VIAL SQ SCH (21:00)
[2020-04-26] MEDS: Insulin DETEMIR 100 UNIT/ML X5UNITS SQ SCH (22:15)
[2020-04-27] MEDS: polyethylene glycoL 3350 17 GM POWD.PACK PO SCH (08:11)
[2020-04-27] MEDS: *HR* Enoxaparin 40 MG/0.4 ML SYRINGE SQ SCH (08:11)
[2020-04-27] MEDS: carvediloL 6.25 MG TABLET PO SCH (08:11)
[2020-04-27] MEDS: Insulin LISPRO 300 UNITS/3 ML VIAL SQ SCH (08:11)
[2020-04-27] MEDS: Aspirin 81 MG TAB.CHEW PO SCH (08:11)
[2020-04-27 09:06] LABS: Hematocrit 38.3 % (37.5-50.1); Mean Corpuscular HGB Conc 31.6 g/dL (31.6-35.5); Mean Corpuscular Hemoglobin 27.8 pg (28.0-33.3); Mean Platelet Volume 8.8 fL (9.4-12.4); Platelet Count 427 K/mcL (140-400); Red Blood Count 4.35 M/mcL (4.19-5.50); Red Cell Distribution Width 13.7 % (11.5-14.5); White Blood Count 5.9 K/mcL (4.3-11.1)
[2020-04-27 09:24] LABS: BUN/Creatinine Ratio 19 (6-26); Blood Urea Nitrogen 21 mg/dL (8-23); Calcium 9.3 mg/dL (8.6-10.3); Carbon Dioxide 29 mEq/L (23-29); Chloride 104 mEq/L (98-107); Glucose 122 mg/dL (70-105); Osmolality,Calculated 294 (280-300); Potassium 3.5 mEq/L (3.5-5.1); Sodium 140 mEq/L (136-145); eGFR For African Americans > 60 (> 60); eGFR For Non-African Americans > 60 (> 60)
[2020-04-27 09:31] LABS: Hemoglobin 12.1 g/dL (12.9-16.9)
[2020-04-27 11:59] VITALS: BP 161/87
== END 2020-04-27 14:45 | DRG 689 ==
LOC: 3NENU 22:47 → EMEROOARM 22:47 → SUATTDRO 04-23 01:42 → 3NENU 04-23 02:09 → SUATTDRO 04-24 16:23
PROVIDERS: ADMIT Family Medicine; ATTEND Family Medicine

== ENCOUNTER 2020-06-25 17:27 | Observation (INO) ==
[2020-06-25] MEDS ORDERED: *HR* Dextrose 50 % in Water (Vial) 50 ML VIAL ONE (17:31)
[2020-06-25] MEDS ORDERED: *HR* Dextrose 50 % in Water (Vial) 50 ML VIAL IVP ONE (17:35)
[2020-06-25 18:00] LABS: Basophils % 1.1 %; Eosinophils # 0.5 K/mcL (0.0-0.6); Eosinophils % 18.6 %; Hemoglobin 12.3 g/dL (12.9-16.9); Lymphocytes % 38.8 %; Mean Corpuscular HGB Conc 31.5 g/dL (31.6-35.5); Mean Corpuscular Volume 88.8 fL (83.0-100.0); Mean Platelet Volume 9.2 fL (9.4-12.4); Monocytes # 0.5 K/mcL (0.0-1.3); Monocytes % 20.5 %; Neutrophils # 0.6 K/mcL (1.6-8.9); Platelet Count 219 K/mcL (140-400); Red Blood Count 4.39 M/mcL (4.19-5.50); Red Cell Distribution Width 14.2 % (11.5-14.5); White Blood Count 2.6 K/mcL (4.3-11.1)
[2020-06-25 18:27] LABS: Alanine Aminotransferase 16 Units/L (7-52); Albumin 3.7 g/dL (3.5-5.7); Albumin/Globulin Ratio 1.7 (1.1-2.2); Alkaline Phosphatase 93 Units/L (34-104); Aspartate Amino Transferase 14 Units/L (13-39); BUN/Creatinine Ratio 19 (6-26); Bilirubin,Direct 0.1 mg/dL (0.0-0.2); Bilirubin,Indirect 0.3 mg/dL (0.0-1.0); Bilirubin,Total 0.4 mg/dL (0.3-1.0); Blood Urea Nitrogen 25 mg/dL (8-23); Calcium 9.2 mg/dL (8.6-10.3); Carbon Dioxide 27 mEq/L (23-29); Chloride 106 mEq/L (98-107); Globulin 2.2 g/dL (2.4-3.5); Glucose 108 mg/dL (70-105); Osmolality,Calculated 299 (280-300); Potassium 3.4 mEq/L (3.5-5.1); Sodium 142 mEq/L (136-145); Total Protein 5.9 g/dL (6.4-8.9); Troponin I < 0.03 ng/mL (< 0.04); eGFR For African Americans > 60 (> 60); eGFR For Non-African Americans 55 (> 60)
[2020-06-25] MEDS ORDERED: D5% in 0.9% NACL 1,000 ML IVC SCH (18:30)
[2020-06-25 19:11] LABS: Bilirubin,Urine Negative (Negative); Blood,Urine Negative (Negative); Clarity,Urine Clear (Clear); Color,Urine Light-Yellow (Yellow); Glucose,Urine (UA) Normal (Normal); Ketones,Urine Negative (Negative); Leukocyte Esterase,Urine Negative (Negative); Nitrite,Urine Negative (Negative); Protein,Urine Trace mg/dL (Neg-Trace); Specific Gravity,Urine 1.018 (1.010-1.025); Urobilinogen,Urine Normal (Normal)
[2020-06-25] MEDS ORDERED: Acetaminophen 325 MG TABLET PO PRN (19:51)
[2020-06-25] MEDS ORDERED: Naloxone 0.4 MG/ML INJ IVP PRN (19:51)
[2020-06-25] MEDS ORDERED: Dextrose Gel 15 GM/37.5 ML TUBE PO PRN ×2 (19:55)
[2020-06-25] MEDS ORDERED: *HR* Dextrose 50 % in Water (Vial) 50 ML VIAL IVP PRN (19:55)
[2020-06-25] MEDS ORDERED: D5% in Water 1,000 ML IVC PRN (19:55)
[2020-06-25 20:30] LABS: Estimated Average Glucose 137 mg/dl
[2020-06-25] MEDS: Insulin LISPRO 300 UNITS/3 ML VIAL SQ SCH ×2 (21:36→23:19)
[2020-06-25] MEDS: carvediloL 25 MG TABLET PO SCH (21:46)
[2020-06-25] MEDS: Valsartan 80 MG TABLET PO SCH (21:46)
[2020-06-26] MEDS: Insulin LISPRO 300 UNITS/3 ML VIAL SQ SCH ×4 (00:08→17:18)
[2020-06-26 02:26] LABS: Basophils # 0.1 K/mcL (0.0-0.2); Basophils % 1.4 %; Eosinophils # 0.5 K/mcL (0.0-0.6); Eosinophils % 12.8 %; Hematocrit 38.4 % (37.5-50.1); Hemoglobin 12.4 g/dL (12.9-16.9); Lymphocytes # 1.5 K/mcL (0.6-4.6); Lymphocytes % 39.3 %; Mean Corpuscular HGB Conc 32.3 g/dL (31.6-35.5); Mean Corpuscular Hemoglobin 28.1 pg (28.0-33.3); Mean Corpuscular Volume 86.9 fL (83.0-100.0); Monocytes # 0.9 K/mcL (0.0-1.3); Monocytes % 24.6 %; Neutrophils # 0.8 K/mcL (1.6-8.9); Platelet Count 216 K/mcL (140-400); Red Blood Count 4.42 M/mcL (4.19-5.50); Red Cell Distribution Width 14.3 % (11.5-14.5); Segmented Neutrophils % 21.9 %; White Blood Count 3.7 K/mcL (4.3-11.1)
[2020-06-26 02:45] LABS: BUN/Creatinine Ratio 21 (6-26); Blood Urea Nitrogen 23 mg/dL (8-23); Calcium 8.7 mg/dL (8.6-10.3); Carbon Dioxide 25 mEq/L (23-29); Chloride 109 mEq/L (98-107); Glucose 118 mg/dL (70-105); Magnesium 1.8 mg/dL (1.6-2.6); Osmolality,Calculated 303 (280-300); Phosphorous 2.9 mg/dL (2.7-4.5); Potassium 3.6 mEq/L (3.5-5.1); Sodium 144 mEq/L (136-145); eGFR For African Americans > 60 (> 60); eGFR For Non-African Americans > 60 (> 60)
[2020-06-26 02:46] LABS: Platelet Estimate Normal (Normal)
[2020-06-26] MEDS: *HR* Enoxaparin 40 MG/0.4 ML SYRINGE SQ SCH (05:40)
[2020-06-26] MEDS ORDERED: Insulin LISPRO 300 UNITS/3 ML VIAL SQ SCH ×2 (07:30→21:00)
[2020-06-26] MEDS: Valsartan 80 MG TABLET PO SCH ×2 (07:45→19:53)
[2020-06-26] MEDS: carvediloL 25 MG TABLET PO SCH ×2 (07:45→17:16)
[2020-06-26] MEDS: Aspirin 81 MG TAB.CHEW PO SCH (07:45)
[2020-06-26 08:39] LABS: Amphetamine Screen,Urine Negative ng/mL (Cutoff=1000); Barbiturate Screen,Urine Negative ng/mL (Cutoff=200); Benzodiazepines Screen,Urine Negative ng/mL (Cutoff=200); Cannabinoid Screen,Urine Negative ng/mL (Cutoff = 50); Cocaine Screen,Urine Negative ng/mL (Cutoff= 300); Opiate Screen,Urine Negative ng/mL (Cutoff=300); Phencyclidine Screen,Urine Negative ng/mL (Cutoff=25)
[2020-06-26 20:08] LABS: Folate 7.6 ng/mL (3.0-16.0)
[2020-06-27 01:29] LABS: Eosinophils % 11.1 %; Hematocrit 39.6 % (37.5-50.1); Hemoglobin 12.6 g/dL (12.9-16.9); Lymphocytes # 1.5 K/mcL (0.6-4.6); Lymphocytes % 36.6 %; Mean Corpuscular HGB Conc 31.8 g/dL (31.6-35.5); Mean Corpuscular Hemoglobin 27.8 pg (28.0-33.3); Mean Corpuscular Volume 87.4 fL (83.0-100.0); Mean Platelet Volume 9.9 fL (9.4-12.4); Monocytes # 0.9 K/mcL (0.0-1.3); Monocytes % 21.8 %; Neutrophils # 1.2 K/mcL (1.6-8.9); Platelet Count 223 K/mcL (140-400); Red Blood Count 4.53 M/mcL (4.19-5.50); Red Cell Distribution Width 14.2 % (11.5-14.5); Segmented Neutrophils % 29.5 %
[2020-06-27 01:31] LABS: Eosinophils # 0.4 K/mcL (0.0-0.6)
[2020-06-27 01:48] LABS: Platelet Estimate Normal (Normal); Reactive Lymphocytes Present (Not Present)
[2020-06-27 01:53] LABS: BUN/Creatinine Ratio 19 (6-26); Blood Urea Nitrogen 21 mg/dL (8-23); Calcium 9.1 mg/dL (8.6-10.3); Carbon Dioxide 25 mEq/L (23-29); Chloride 107 mEq/L (98-107); Glucose 102 mg/dL (70-105); Osmolality,Calculated 297 (280-300); Potassium 3.5 mEq/L (3.5-5.1); Sodium 142 mEq/L (136-145); eGFR For African Americans > 60 (> 60); eGFR For Non-African Americans > 60 (> 60)
[2020-06-27] MEDS: *HR* Enoxaparin 40 MG/0.4 ML SYRINGE SQ SCH (05:12)
[2020-06-27] MEDS: Insulin LISPRO 300 UNITS/3 ML VIAL SQ SCH ×3 (09:02→16:16)
[2020-06-27] MEDS: Aspirin 81 MG TAB.CHEW PO SCH (09:11)
[2020-06-27] MEDS: carvediloL 25 MG TABLET PO SCH ×2 (09:12→16:16)
[2020-06-27] MEDS: Valsartan 80 MG TABLET PO SCH (09:12)
[2020-06-27 15:21] VITALS: BP 176/92
== END 2020-06-27 17:40 ==
LOC: 3BNU 17:27 → EMEROOARM 17:27 → SUATTDRO 19:40 → 3BNU 20:08
PROVIDERS: ADMIT Student in an Organized Health Care Education/Training Program; ATTEND Internal Medicine

== ENCOUNTER 2021-07-01 17:38 | Observation (INO) ==
[2021-07-01] MEDS ORDERED: Isovue-370 500 ML BOTTLE IVP ONE (18:54)
[2021-07-01 19:30] LABS: Basophils % 0.6 %; Eosinophils # 0.2 K/mcL (0.0-0.6); Eosinophils % 2.3 %; Hematocrit 44.6 % (37.5-50.1); Hemoglobin 15.1 g/dL (12.9-16.9); Immature Granulocytes % 0.3 % (0-4); Lymphocytes # 1.4 K/mcL (0.6-4.6); Lymphocytes % 19.6 %; Mean Corpuscular HGB Conc 33.9 g/dL (31.6-35.5); Mean Corpuscular Hemoglobin 29.8 pg (28.0-33.3); Mean Platelet Volume 10.2 fL (9.4-12.4); Monocytes # 0.6 K/mcL (0.0-1.3); Monocytes % 8.1 %; Platelet Count 193 K/mcL (140-400); Red Blood Count 5.07 M/mcL (4.19-5.50); Red Cell Distribution Width 13.7 % (11.5-14.5); Segmented Neutrophils % 69.1 %; White Blood Count 7.3 K/mcL (4.3-11.1)
[2021-07-01] MEDS ORDERED: 0.9 % Sodium Chloride 500 ML IVC ONE (19:35)
[2021-07-01 19:37] LABS: INR 1.3; Prothrombin Time 14.7 Seconds (9.4-12.1)
[2021-07-01 19:40] LABS: Activated Partial Thrombo Time 34.4 Seconds (26.0-36.0)
[2021-07-01 19:48] LABS: Phosphorous 3.3 mg/dL (2.7-4.5)
[2021-07-01 19:58] LABS: Calcium 9.6 mg/dL (8.6-10.3); Potassium 4.8 mEq/L (3.5-5.1)
[2021-07-02] MEDS ORDERED: *HR* Heparin 5,000 UNIT/ML VIAL IVP PRN ×2 (00:04)
[2021-07-02] MEDS ORDERED: *HR* Heparin 5,000 UNIT/ML VIAL IVP ONE (00:04)
[2021-07-02] MEDS ORDERED: Heparin 25,000UNIT/250ML 1/2NS 25,000 UNIT/250 ML IV.SOLN IVC SCH (00:15)
[2021-07-02] MEDS ORDERED: Melatonin 3 MG TABLET PO PRN (01:12)
[2021-07-02] MEDS ORDERED: Naloxone 0.4 MG/ML INJ IVP PRN (01:12)
[2021-07-02] MEDS ORDERED: *HR* Promethazine 25 MG/ML VIAL IM PRN (01:12)
[2021-07-02] MEDS ORDERED: *HR* HYDROcodone/Acet 5/325 mg TABLET PO PRN (01:12)
[2021-07-02] MEDS ORDERED: Acetaminophen 325 MG TABLET PO PRN (01:12)
[2021-07-02] MEDS ORDERED: Ondansetron 4 MG/2 ML VIAL IVP PRN (01:12)
[2021-07-02] MEDS: Ringers Solution, Lactated 1,000 ML IVC SCH ×2 (02:22→09:44)
[2021-07-02 02:50] LABS: Basophils % 0.4 %; Eosinophils # 0.2 K/mcL (0.0-0.6); Eosinophils % 2.7 %; Hematocrit 41.6 % (37.5-50.1); Hemoglobin 14.2 g/dL (12.9-16.9); Immature Granulocytes % 0.3 % (0-4); Lymphocytes # 2.2 K/mcL (0.6-4.6); Lymphocytes % 30.1 %; Mean Corpuscular HGB Conc 34.1 g/dL (31.6-35.5); Mean Corpuscular Volume 87.9 fL (83.0-100.0); Monocytes # 0.7 K/mcL (0.0-1.3); Monocytes % 9.1 %; Neutrophils # 4.2 K/mcL (1.6-8.9); Platelet Count 178 K/mcL (140-400); Red Blood Count 4.73 M/mcL (4.19-5.50); Red Cell Distribution Width 13.6 % (11.5-14.5); Segmented Neutrophils % 57.4 %; White Blood Count 7.3 K/mcL (4.3-11.1)
[2021-07-02 02:57] LABS: INR 2.1; Prothrombin Time 23.7 Seconds (9.4-12.1)
[2021-07-02] MEDS ORDERED: *HR* Dextrose 50 % in Water (Vial) 50 ML VIAL IVP PRN (03:46)
[2021-07-02] MEDS ORDERED: D5% in Water 1,000 ML IVC PRN (03:46)
[2021-07-02] MEDS ORDERED: Dextrose Gel 15 GM/37.5 ML TUBE PO PRN ×2 (03:46)
[2021-07-02] MEDS: Gabapentin 300 MG CAPSULE PO SCH ×2 (09:43→20:04)
[2021-07-02] MEDS: Valsartan 80 MG TABLET PO SCH ×2 (09:43→20:03)
[2021-07-02] MEDS: Aspirin 81 MG TAB.CHEW PO SCH (09:43)
[2021-07-02] MEDS: carvediloL 6.25 MG TABLET PO SCH ×2 (09:43→17:43)
[2021-07-02] MEDS: Spironolactone 25 MG TABLET PO SCH (09:43)
[2021-07-02] MEDS: Insulin LISPRO 300 UNITS/3 ML VIAL SUBQ SCH ×3 (09:49→17:44)
[2021-07-02] MEDS ORDERED: *HR* Rivaroxaban 15 MG TABLET PO SCH (17:00)
[2021-07-02] MEDS: *HR* Rivaroxaban 15 MG TABLET PO SCH (20:04)
[2021-07-02] MEDS ORDERED: traZODone 50 MG TABLET PO SCH (21:00)
[2021-07-02] MEDS ORDERED: Insulin LISPRO 300 UNITS/3 ML VIAL SUBQ SCH (21:00)
[2021-07-03 02:32] LABS: INR 2.1; Prothrombin Time 23.9 Seconds (9.4-12.1)
[2021-07-03 02:46] LABS: Calcium 8.7 mg/dL (8.6-10.3); Potassium 4.2 mEq/L (3.5-5.1)
[2021-07-03 03:39] VITALS: O2SAT 97
[2021-07-03] MEDS ORDERED: hydrALAZINE 10 MG TABLET PO SCH (09:00)
[2021-07-03] MEDS: Valsartan 80 MG TABLET PO SCH (09:07)
[2021-07-03] MEDS: Insulin LISPRO 300 UNITS/3 ML VIAL SUBQ SCH ×2 (09:08→12:34)
[2021-07-03] MEDS: Spironolactone 25 MG TABLET PO SCH (09:08)
[2021-07-03] MEDS: carvediloL 6.25 MG TABLET PO SCH (09:08)
[2021-07-03] MEDS: Gabapentin 300 MG CAPSULE PO SCH (09:08)
[2021-07-03] MEDS: *HR* Rivaroxaban 15 MG TABLET PO SCH (09:08)
[2021-07-03] MEDS: Aspirin 81 MG TAB.CHEW PO SCH (09:08)
[2021-07-03] MEDS ORDERED: amLODIPine 5 MG TABLET PO ONE (10:47)
[2021-07-03 12:17] VITALS: BP 158/77; PULSE 41; TEMP 98.3
== END 2021-07-03 13:35 | disposition home or self-care (01) ==
LOC: 3BNU 17:38 → EMEROOARM 17:38 → 3BNU 07-02 00:52
PROVIDERS: ADMIT Internal Medicine; ATTEND Internal Medicine

== ENCOUNTER 2021-12-08 12:51 | Inpatient (IN) ==
[2021-12-08] MEDS ORDERED: CeFAZolin Syr 2,000MG/20 ML 2,000 MG/20 ML SYRINGE IVPB ONE (13:16)
[2021-12-08] MEDS ORDERED: Ringers Solution, Lactated 1,000 ML IVC SCH (13:30)
[2021-12-08] MEDS ORDERED: *HR* OxyCODONE Immed Rel 5 MG TABLET PO PRN ×2 (13:57→20:03)
[2021-12-08] MEDS ORDERED: Albuterol 2.5 MG/3 ML NEBULIZER IH PRN (13:57)
[2021-12-08] MEDS ORDERED: *HR* Metoprolol 5 MG/5 ML VIAL IVP PRN (13:57)
[2021-12-08] MEDS ORDERED: Acetaminophen IV 1,000 MG/100 ML BAG IVPB ONE (13:57)
[2021-12-08] MEDS ORDERED: *HR* FentaNYL (PF) 100 MCG/2 ML VIAL IVP PRN (13:57)
[2021-12-08] MEDS ORDERED: Ondansetron 4 MG/2 ML VIAL IVP PRN ×2 (13:57→20:03)
[2021-12-08] MEDS ORDERED: Vancomycin 1,000 MG, Sodium Chloride IRRigation 1,000 ML IR ONE (14:30)
[2021-12-08] MEDS ORDERED: *HR* Rocuronium Bromide 50 MG/5 ML VIAL ONE ×2 (14:49→18:35)
[2021-12-08] MEDS ORDERED: Lidocaine -MPF 2% 5 ML VIAL ONE (14:49)
[2021-12-08] MEDS ORDERED: Lidocaine HCL 4 ML Topical Solution (Laryng-O-Jet Kit Sterile Pak) TP ONE (14:49)
[2021-12-08] MEDS ORDERED: Ondansetron 4 MG/2 ML VIAL ONE (14:49)
[2021-12-08] MEDS ORDERED: Heparin 1,000 UNITS/500 mL 500 ML ONE ×2 (15:07→15:25)
[2021-12-08] MEDS ORDERED: Bupivacaine-MPF 0.25% 10 ML VIAL ONE (15:25)
[2021-12-08] MEDS ORDERED: Protamine Sulfate 50 MG/5 ML VIAL IVP ONE (15:25)
[2021-12-08] MEDS ORDERED: Heparin 1,000 UNITS/500 mL 1,500 ML ONE (15:31)
[2021-12-08] MEDS ORDERED: *HR* FentaNYL (PF) 100 MCG/2 ML VIAL ONE (15:46)
[2021-12-08] MEDS ORDERED: *HR* Propofol 200 MG/20 ML VIAL IVP ONE (15:47)
[2021-12-08] MEDS ORDERED: EPHEDrine 50 MG/ML VIAL ONE (16:27)
[2021-12-08] MEDS ORDERED: *HR* Phenylephrine 10 MG/ML VIAL ONE (16:29)
[2021-12-08] MEDS ORDERED: *HR* Heparin 5,000 UNIT/ML VIAL ONE ×2 (17:21→18:17)
[2021-12-08] MEDS ORDERED: *HR* HYDROMORPHONE 2 MG/ML VIAL ONE (18:33)
[2021-12-08] MEDS ORDERED: *HR* Dextrose 50 % in Water (Vial) 50 ML VIAL ONE (19:19)
[2021-12-08] MEDS ORDERED: Naloxone 0.4 MG/ML INJ IVP PRN (20:03)
[2021-12-08] MEDS ORDERED: 0.9 % Sodium Chloride 1,000 ML IVC SCH (20:03)
[2021-12-08] MEDS ORDERED: *HR* HYDROcodone/Acet 5/325 mg TABLET PO PRN (20:03)
[2021-12-08] MEDS ORDERED: *HR* Labetalol 20 MG/4 ML SYRINGE IVP PRN (20:03)
[2021-12-08] MEDS ORDERED: Acetaminophen 325 MG TABLET PO PRN (20:03)
[2021-12-08] MEDS ORDERED: traZODone 50 MG TABLET PO SCH (21:00)
[2021-12-08] MEDS ORDERED: Insulin DETEMIR 100 UNIT/ML X5UNITS SUBQ SCH (21:00)
[2021-12-08] MEDS: amLODIPine 5 MG TABLET PO SCH (21:53)
[2021-12-08] MEDS: Gabapentin 300 MG CAPSULE PO SCH (21:53)
[2021-12-08] MEDS: GlipiZIDE 5 MG TABLET PO SCH (21:53)
[2021-12-08] MEDS: hydrALAZINE 10 MG TABLET PO SCH (21:53)
[2021-12-09] MEDS: *HR* Metoprolol 5 MG/5 ML VIAL IVP SCH ×2 (00:03→06:43)
[2021-12-09 04:58] LABS: Basophils % 0.1 %; Hematocrit 40.7 % (37.5-50.1); Immature Granulocytes % 0.3 % (0-4); Lymphocytes # 0.7 K/mcL (0.6-4.6); Lymphocytes % 5.9 %; Mean Corpuscular HGB Conc 33.9 g/dL (31.6-35.5); Mean Corpuscular Hemoglobin 31.3 pg (28.0-33.3); Mean Corpuscular Volume 92.3 fL (83.0-100.0); Mean Platelet Volume 9.5 fL (9.4-12.4); Monocytes # 0.3 K/mcL (0.0-1.3); Monocytes % 2.1 %; Platelet Count 192 K/mcL (140-400); Red Blood Count 4.41 M/mcL (4.19-5.50); Red Cell Distribution Width 13.6 % (11.5-14.5); Segmented Neutrophils % 91.6 %
[2021-12-09 04:59] LABS: Hemoglobin 13.8 g/dL (12.9-16.9); Neutrophils # 11.3 K/mcL (1.6-8.9); White Blood Count 12.3 K/mcL (4.3-11.1)
[2021-12-09 05:17] LABS: BUN/Creatinine Ratio 17 (6-26); Blood Urea Nitrogen 21 mg/dL (8-23); Calcium 8.4 mg/dL (8.6-10.3); Carbon Dioxide 18 mEq/L (23-29); Chloride 108 mEq/L (98-107); Glucose 117 mg/dL (70-105); Osmolality,Calculated 286 (280-300); Potassium 4.6 mEq/L (3.5-5.1); Sodium 136 mEq/L (136-145); eGFR For African Americans > 60 (> 60); eGFR For Non-African Americans 57 (> 60)
[2021-12-09] MEDS ORDERED: *HR* Heparin 5,000 UNIT/ML VIAL SQ SCH ×2 (06:00)
[2021-12-09] MEDS ORDERED: carvediloL 25 MG TABLET PO SCH (08:00)
[2021-12-09] MEDS: hydrALAZINE 10 MG TABLET PO SCH (08:18)
[2021-12-09] MEDS: GlipiZIDE 5 MG TABLET PO SCH (08:18)
[2021-12-09] MEDS: Gabapentin 300 MG CAPSULE PO SCH (08:18)
[2021-12-09] MEDS: amLODIPine 5 MG TABLET PO SCH (08:18)
[2021-12-09] MEDS ORDERED: CeFAZolin 2 GM/120 ML BAG IVPB SCH ×2 (09:00)
[2021-12-09] MEDS ORDERED: Spironolactone 25 MG TABLET PO SCH (09:00)
[2021-12-09 09:40] VITALS: O2SAT 95
[2021-12-09 11:28] VITALS: TEMP 98
[2021-12-09 15:46] VITALS: BP 120/89; PULSE 78
== END 2021-12-09 16:30 | disposition home or self-care (01) | DRG 253 ==
LOC: SAMDAY 12:51 → 2NNU 19:58
PROVIDERS: ADMIT Surgery; ATTEND Surgery